=== PATIENT | female | born 1965 | race Caucasian/White ===

== ENCOUNTER 2017-03-31 19:00 | Emergency (ER) | payer SELFPAY ==
[~2017-03-31 19:00] MED LIST: D100 PO; PRIN5 PO
== END 2017-03-31 19:14 | disposition home or self-care (01) ==
LOC: ER 19:00
DX: S60.221A Contusion of right hand, initial encounter (principal); F17.200 Nicotine dependence, unspecified, uncomplicated; I10 Essential (primary) hypertension; W23.0XXA Caught, crushed, jammed, or pinched between moving objects, initial encounter
CPT/HCPCS: 73130-RT; 99283